=== PATIENT | male | born 1945 | race Caucasian/White ===

== ENCOUNTER 2024-11-02 06:43 | Day surgery (SDC) | payer OTHER ==
[2024-10-28 16:51] VITALS: BMI 24.3
[2024-11-02] MEDS ORDERED: PROPOFOL 20 ML ONE ×2 (12:23→13:50)
[2024-11-02] MEDS: ceFAZolin SODIUM 1 GM VIAL IVPB ONE (13:50)
[2024-11-02] MEDS ORDERED: DEXAMETHASONE SOD PHOSPHATE 4 MG/1 ML VIAL ONE (14:18)
[2024-11-02] MEDS ORDERED: ONDANSETRON 4 MG/2 ML VIAL ONE (14:18)
[2024-11-02 16:49] VITALS: BP 126/67; PULSE 66; RESP 16; TEMP 96.9
== END 2024-11-02 16:43 | disposition home or self-care (01) ==
LOC: JASU-SURG 06:43
PROVIDERS: ATTEND Urology
PROC: 0VT08ZZ Resection of Prostate, Via Natural or Artificial Opening Endoscopic (ICD-10-PCS; principal; 2024-11-02 14:30)
DX: N34.2 Other urethritis (principal)
CPT/HCPCS: 88305-TC; 94760